=== PATIENT | male | born 1985 | race African-American/Black ===

== ENCOUNTER 2019-04-30 16:06 | Emergency (ER) | payer OTHER ==
[~2019-04-30] VITALS: Ht 175.3 cm; Wt 81.7 kg
[2019-04-30 16:59] LABS: ABSOLUTE NEUTROPHILS 4.4 thou/uL (1.4-8.2); BASOPHILS 0.7 % (0.0-2.0); EOSINOPHILS 1.3 % (0.0-3.0); HEMATOCRIT 49.2 % (42.0-52.0); HEMOGLOBIN 16.4 gm/dL (14.0-18.0); LYMPHOCYTES 26.9 % (24.0-44.0); MCHC 33.3 g/dL (28.0-37.0); MCV 90.1 fL (80.0-100.0); MONOCYTES 4.6 % (1.0-8.0); PLATELET COUNT 230 thou/uL (150-400); POLYS 66.5 % (36.0-66.0); RBC 5.46 mil/uL (4.50-6.00); RDW 13.3 % (10.5-14.5); WBC 6.7 thou/uL (4.0-11.0)
[2019-04-30 17:08] LABS: ANION GAP 8 mmol/L (7-16); BUN 12 mg/dL (7-18); CALCIUM 9.1 mg/dL (8.5-10.1); CHLORIDE 101 mmol/L (98-107); CO2 27 mmol/L (21-32); GLUCOSE 176 mg/dL (74-106); POTASSIUM 3.4 mmol/L (3.5-5.1); SODIUM 136 mmol/L (136-145)
[2019-04-30 17:18] LABS: ALBUMIN 4.3 g/dL (3.4-5.0); SGOT 19 U/L (15-37); SGPT 52 U/L (30-65); TOTAL BILIRUBIN 0.5 mg/dL (<0.1-1.0); TOTAL PROTEIN 7.9 g/dL (6.4-8.2); TROPONIN-I <0.06 ng/mL (<0.06)
[2019-04-30] MEDS ORDERED: IBUPROFEN 600600 M1 PO (17:31)
[2019-04-30 18:55] VITALS: BP 126/74
--- NOTE | 2019-05-01 07:54 | EKG ---
[address] [address] ELECTROCARDIOGRAM REPORT Name: HARRIS PANDEY Room #: DEP Sharon#: [id number] Admission: 04/30/19 Attend Phys: Discharge: 04/30/19 Date of : 87 Report #: [id number] THIS REPORT FOR: //name// [facility] ED Test Date: 2019-04-30 Test Time: 16:13:00 Pat Name: HARRIS PANDEY Department: Room: Gender: Physics Teacher: CYNDY : 1985 Requested By: Fabrice Villatoro Order Number: [id number] MD: Ilya Truong Measurements Intervals [place] Rate: 64 P: 64 KS: 161 QRS: 35 QRSD: 103 T: 36 QT: 399 QTc: 412 Interpretive Statements Sinus rhythm Normal tracing No previous ECG available for comparison Electronically Signed On 05-01-2019 7:54:07 CURTAIN STRETCHER by Ilya Truong [email or web address] <ELECTRONICALLY SIGNED> By: Ilya Truong MD, [facility] 05/01/19 [id number] Ilya Truong MD, FACC /EPI
== END 2019-04-30 18:50 | disposition home or self-care (01) ==
LOC: ER 16:06
PROVIDERS: Physician Assistant
DX: R07.89 Other chest pain (principal); F17.290 Nicotine dependence, other tobacco product, uncomplicated